=== PATIENT | female | born 1930 | race Caucasian/White ===

== ENCOUNTER 2018-09-21 10:54 | Inpatient (IN) | payer MEDICARE, OTHER ==
[~2018-09-21] VITALS: Ht 154.9 cm; Wt 89.4 kg
[2018-09-21 11:26] VITALS: BP 163/89
[2018-09-21 12:02] LABS: BASO # 0.1 x10^3/uL (0.0-0.2); BASO % 1 % (0-3); EOS % 6 % (0-3); HEMATOCRIT 40.7 % (36.0-47.0); HEMOGLOBIN 13.6 g/dL (12.0-15.5); LYMPH # 1.3 x10^3/uL (1.0-4.8); LYMPH % 8 % (24-48); MEAN CORPUSCULAR HEMOGLOBIN 30 pg (25-35); MEAN CORPUSCULAR HGB CONC 34 g/dL (31-37); MEAN CORPUSCULAR VOLUME 89 fL (79-100); MONO # 1.2 x10^3/uL (0.0-1.1); MONO % 7 % (0-9); NEUT # 13.1 x10^3uL (1.8-7.7); NEUT % 78 % (31-73); PLATELET COUNT 326 x10^3/uL (140-400); RED BLOOD COUNT 4.59 x10^6/uL (3.50-5.40); RED CELL DISTRIBUTION WIDTH 14.3 % (11.5-14.5); WHITE BLOOD COUNT 16.8 x10^3/uL (4.0-11.0)
[2018-09-21 12:17] LABS: ALBUMIN 3.3 g/dL (3.4-5.0); ALBUMIN/GLOBULIN RATIO 0.8 (1.0-1.7); CALCIUM 9.1 mg/dL (8.5-10.1); CREATININE 1.1 mg/dL (0.6-1.0); GFR 47.2; POTASSIUM 4.6 mmol/L (3.5-5.1); TOTAL BILIRUBIN 0.4 mg/dL (0.2-1.0); TOTAL PROTEIN 7.7 g/dL (6.4-8.2)
--- NOTE | 2018-09-21 12:19 | NUR ---
The patient, DONNY SANTIAGO, 87 y/o, F admitted by WHIT HALLMAN MD, was given written information regarding hospital policies, unit procedures and contact persons. Valuables were checked and admission assessment performed. Pt is alert and orientated, pt is very short of breath, lungs are very coarse and wheezy. Pt's VSS. Started 20g in the Right wrist, janette labs including blood cultures. Pt is placed in contact and droplet insolation due to possible flu and pt is being treated at home for bed bugs. Orders received from Dr. Hallman, will CTM.
[2018-09-21 12:23] LABS: INFLUENZA A PATIENT NEGATIVE (NEGATIVE); INFLUENZA B PATIENT NEGATIVE (NEGATIVE)
[2018-09-21] MEDS ORDERED: AZITHROMYCIN 250 MG TABLET. PO SCH (12:30)
--- NOTE | 2018-09-21 12:33 | RAD ---
EXAM: Chest, single view. HISTORY: Shortness of breath. COMPARISON: None. FINDINGS: A frontal view of the chest is obtained. There is mild diffuse increased interstitial opacity. There is no consolidation, pleural effusion or pneumothorax. The heart is normal in size for portable technique. There are calcified granulomas. There is superior migration of the right and left humeral heads likely due to chronic rotator cuff pathology. IMPRESSION: Mild diffuse increased interstitial opacity without anusha congestion or consolidated infiltrate. Electronically signed by: Rach Camargo MD (09/21/2018 12:30 PM) [id number]
[2018-09-21 12:46] LABS: % BANDS 2 % (0-9); % BASOS 1 % (0-3); % EOS 8 % (0-5); % LYMPHS 1 % (24-48); % MONOS 4 % (0-10); % SEGS 78 % (35-66); PLT ESTIMATE ADEQUATE (ADEQUATE)
[2018-09-21 12:47] LABS: TOXIC GRANULATION PRESENT
[2018-09-21] MEDS ORDERED: NIFE30TA38 PO (12:51)
[2018-09-21] MEDS ORDERED: CLON0.1T PO (12:51)
[2018-09-21] MEDS ORDERED: ATOR20TA58 PO (12:51)
[2018-09-21] MEDS ORDERED: VORT5TAB PO (12:51)
[2018-09-21] MEDS ORDERED: CALC-157 PO (12:51)
[2018-09-21] MEDS ORDERED: HYDR-2868 PO (12:51)
[2018-09-21] MEDS ORDERED: CLOP75TA57 PO (12:51)
[2018-09-21] MEDS ORDERED: MELA3TAB2 PO (12:51)
[2018-09-21] MEDS ORDERED: GLUC100018 PO (12:51)
[2018-09-21] MEDS ORDERED: CITA20TA9 PO (12:51)
[2018-09-21] MEDS ORDERED: LISI-334 PO (12:51)
[2018-09-21] MEDS ORDERED: ASPI325T8 PO (12:51)
[2018-09-21] MEDS ORDERED: NYST1000 PO (12:51)
[2018-09-21] MEDS: BENZONATATE 100 MG CAPSULE. PO SCH ×2 (13:24→22:09)
[2018-09-21] MEDS: IPRATRPIUM/ALBUTEROL 0.5/2.5MG 3 ML NEBU. NEB SCH ×3 (13:41→20:15)
[2018-09-21] MEDS ORDERED: HEPARIN for SUB-Q USE 5,000 UNIT/ML VIAL. SQ SCH (14:00)
[2018-09-21] MEDS: GLUCOSAMINE 500 MG CAPSULE PO SCH ×2 (14:30→22:09)
[2018-09-21 15:18] VITALS: BP 141/87
[2018-09-21] MEDS ORDERED: NYSTATIN 100,000 UNITS/ML ORAL SUSPENSION 60ML BOTTLE. SWSW PRN (17:00)
[2018-09-21] MEDS ORDERED: hydrALAZINE 25 MG TABLET PO SCH (17:00)
[2018-09-21 18:33] VITALS: BP 185/96
--- NOTE | 2018-09-21 18:52 | RAD ---
EXAM: Bilateral lower extremity venous Doppler sonogram. HISTORY: Pain and swelling. TECHNIQUE: Mendez scale and color Doppler sonographic evaluation of the bilateral lower extremity veins with spectral waveform analysis was performed. FINDINGS: There is normal color flow, normal compressibility and there are normal spectral waveforms in the common femoral, superficial femoral, popliteal, posterior tibial and greater saphenous veins. IMPRESSION: No Doppler evidence of lower extremity deep venous thrombosis. Electronically signed by: Rach Camargo MD (09/21/2018 6:49 PM) [facility]
[2018-09-21 20:44] LABS: BACTERIA,URINE FEW /HPF (0-FEW); BILIRUBIN,URINE NEG (NEG); CLARITY,URINE HAZY; COLOR,URINE STRAW; GLUCOSE,URINE NEG (NEG); NITRITE,URINE NEG (NEG); RBC,URINE 0 /HPF (0-2); SQUAMOUS EPITHELIAL CELL,UR OCC /LPF; UROBILINOGEN,URINE 0.2 mg/dL (0.2 mg/dL); WBC,URINE 0 /HPF (0-4)
[2018-09-21] MEDS: LACTOBACILLUS RHAMNOSUS GG 1 CAPSULE. PO SCH (22:09)
[2018-09-21] MEDS: methylPREDNISolone SOD SUCC PF 40 MG/ML VIAL. IV SCH (22:09)
[2018-09-21 22:10] VITALS: BP 182/83
[2018-09-21] MEDS: MELATONIN 3 MG TABLET PO SCH (22:10)
[2018-09-21] MEDS: cloNIDine HCL 0.1 MG TABLET PO SCH (22:13)
[2018-09-21] MEDS: hydrALAZINE 25 MG TABLET PO SCH (22:15)
[2018-09-21] MEDS ORDERED: cloNIDine HCL 0.1 MG TABLET PO PRN (22:30)
[2018-09-22] MEDS: IPRATRPIUM/ALBUTEROL 0.5/2.5MG 3 ML NEBU. NEB SCH ×4 (04:57→20:38)
[2018-09-22 06:09] VITALS: BP 155/89
[2018-09-22 06:57] LABS: BASO % 0 % (0-3); EOS % 0 % (0-3); HEMATOCRIT 39.1 % (36.0-47.0); HEMOGLOBIN 12.8 g/dL (12.0-15.5); LYMPH # 0.5 x10^3/uL (1.0-4.8); LYMPH % 4 % (24-48); MEAN CORPUSCULAR HEMOGLOBIN 29 pg (25-35); MEAN CORPUSCULAR HGB CONC 33 g/dL (31-37); MEAN CORPUSCULAR VOLUME 89 fL (79-100); MONO # 0.1 x10^3/uL (0.0-1.1); MONO % 1 % (0-9); NEUT # 10.8 x10^3uL (1.8-7.7); NEUT % 94 % (31-73); PLATELET COUNT 283 x10^3/uL (140-400); RED BLOOD COUNT 4.38 x10^6/uL (3.50-5.40); RED CELL DISTRIBUTION WIDTH 14.1 % (11.5-14.5); WHITE BLOOD COUNT 11.5 x10^3/uL (4.0-11.0)
[2018-09-22 07:06] LABS: CALCIUM 9.3 mg/dL (8.5-10.1); CREATININE 1.4 mg/dL (0.6-1.0); GFR 35.7
[2018-09-22] MEDS: NON FORMULARY ITEM (Vortioxetine Hydrobromide (Trintellix) 5 MG) PO SCH (09:00)
[2018-09-22] MEDS: methylPREDNISolone SOD SUCC PF 40 MG/ML VIAL. IV SCH ×2 (10:27→20:38)
[2018-09-22] MEDS: ASPIRIN 325 MG TABLET PO SCH (10:28)
[2018-09-22] MEDS: LISINOPRIL 20 MG TABLET PO SCH (10:28)
[2018-09-22] MEDS: GLUCOSAMINE 500 MG CAPSULE PO SCH ×3 (10:28→20:40)
[2018-09-22] MEDS: BENZONATATE 100 MG CAPSULE. PO SCH ×3 (10:29→20:40)
[2018-09-22] MEDS: CLOPIDOGREL BISULFATE 75 MG TABLET PO SCH (10:29)
[2018-09-22] MEDS: LACTOBACILLUS RHAMNOSUS GG 1 CAPSULE. PO SCH ×2 (10:29→20:38)
[2018-09-22] MEDS: hydrALAZINE 25 MG TABLET PO SCH ×3 (10:29→20:40)
[2018-09-22] MEDS: CITALOPRAM 20 MG TABLET. PO SCH (10:29)
[2018-09-22] MEDS: CALCIUM CARB/VIT D3 500/200 TABLET PO SCH (10:29)
[2018-09-22] MEDS: ATORVASTATIN CALCIUM 20 MG TABLET PO SCH (10:29)
[2018-09-22 11:03] VITALS: BP 135/82
[2018-09-22 15:57] VITALS: BP 163/79
[2018-09-22 20:36] VITALS: BP 154/78
[2018-09-22] MEDS: MELATONIN 3 MG TABLET PO SCH (20:39)
[2018-09-22] MEDS: cloNIDine HCL 0.1 MG TABLET PO SCH (20:39)
[2018-09-22 23:18] VITALS: BP 156/76
--- NOTE | 2018-09-23 02:18 | PN ---
DATE: SUBJECTIVE: The patient in with pneumonia, sepsis. Continue on IV antibiotic therapy. White count has come down to 11,000. The patient is feeling a little bit stronger overall already. OBJECTIVE: VITAL SIGNS: Indicate blood pressure 160/70, respiratory rate 20, pulse 94 and oxygen saturation up to 96%. Blood pressures come down as well, so we are making good progress there. GENERAL: Otherwise, alert and oriented. LUNGS: Diminished, primarily in the right lower lung base, but markedly improved. CARDIOVASCULAR: Regular sinus rhythm. ABDOMEN: Soft, nontender. EXTREMITIES: No clubbing, cyanosis. Trace edema. The patient on pneumatic compression devices. Will continue to be monitored carefully. Continue on IV antibiotic therapy and continue to monitor her accordingly. Her influenza A was negative. She did have a positive D-dimer and we are waiting for the nuclear medicine machine to be fired up or repaired before we can handle that. IMPRESSION: Pneumonia, acute exacerbation of chronic obstructive pulmonary disease secondary to respiratory infection, chronic kidney disease stage 3, moderate protein malnutrition. PLAN: As above. WHIT HALLMAN MD DR: SACHIN/wayne JOB#: [id number] / [id number]
[2018-09-23] MEDS: IPRATRPIUM/ALBUTEROL 0.5/2.5MG 3 ML NEBU. NEB SCH ×4 (05:07→20:57)
[2018-09-23 05:35] VITALS: BP 132/81
--- NOTE | 2018-09-23 06:42 | EKG ---
[address] [address] Test Date: 2018-09-21 Test Time: 16:02:59 Pat Name: DONNY SANTIAGO Department: Room: 109 A Gender: F Can Filling Machine Operator: : [id number] Requested By: WHIT HALLMAN Order Number: [id number] Reading MD: Young Dailey MD Measurements Intervals Golden Rate: 78 P: -3 TX: 158 QRS: 8 QRSD: 78 T: 28 QT: 374 QTc: 430 Interpretive Statements SINUS RHYTHM Electronically Signed On 09-24-2018 14:09:55 CDT by Young Dailey MD
[2018-09-23] MEDS: ASPIRIN 325 MG TABLET PO SCH (09:00)
[2018-09-23] MEDS: CLOPIDOGREL BISULFATE 75 MG TABLET PO SCH (09:00)
[2018-09-23] MEDS: hydrALAZINE 25 MG TABLET PO SCH ×3 (09:01→20:21)
[2018-09-23] MEDS: ATORVASTATIN CALCIUM 20 MG TABLET PO SCH (09:01)
[2018-09-23] MEDS: CITALOPRAM 20 MG TABLET. PO SCH (09:01)
[2018-09-23] MEDS: guaiFENesin DM 200MG/20MG 10 ML SYRUP PO PRN (09:01)
[2018-09-23] MEDS: CALCIUM CARB/VIT D3 500/200 TABLET PO SCH (09:01)
[2018-09-23] MEDS: LACTOBACILLUS RHAMNOSUS GG 1 CAPSULE. PO SCH ×2 (09:01→20:20)
[2018-09-23] MEDS: LISINOPRIL 20 MG TABLET PO SCH (09:01)
[2018-09-23] MEDS: GLUCOSAMINE 500 MG CAPSULE PO SCH ×3 (09:02→20:23)
[2018-09-23] MEDS: methylPREDNISolone SOD SUCC PF 40 MG/ML VIAL. IV SCH ×2 (09:02→20:22)
[2018-09-23] MEDS: BENZONATATE 100 MG CAPSULE. PO SCH ×3 (09:03→20:20)
[2018-09-23] MEDS: NON FORMULARY ITEM (Vortioxetine Hydrobromide (Trintellix) 5 MG) PO SCH (09:07)
[2018-09-23 11:32] VITALS: BP 137/68
[2018-09-23 15:28] VITALS: BP 164/77
[2018-09-23] MEDS: RIVAROXABAN 15 MG TABLET. PO SCH (17:04)
[2018-09-23 20:07] VITALS: BP 131/70
[2018-09-23] MEDS: cloNIDine HCL 0.1 MG TABLET PO SCH (20:20)
[2018-09-23] MEDS: MELATONIN 3 MG TABLET PO SCH (20:22)
[2018-09-23 22:51] VITALS: BP 124/66
--- NOTE | 2018-09-24 01:22 | PN ---
DATE: 09/23/2018 SUBJECTIVE: An 87-year-old female in with acute exacerbation of COPD and acute bronchospasm. The patient is still having severe bronchospasm. OBJECTIVE: VITAL SIGNS: Blood pressure 130/80, respiratory rate 20, pulse 90, afebrile. GENERAL: The patient is alert and oriented. LUNGS: Still show raspy sounds, coughing jagged. LABORATORY DATA: The patient's white count is still elevated. Otherwise, she is having problems with coughing and bronchospasm, but it is somewhat improved. Blood pressure 130/80, respiratory rate 20, pulse of 90. She is afebrile. She is due for a V/Q scan today because of the positive D-dimer. She will continue to be monitored carefully and make further evaluation on her per those results. Otherwise, she continues to receive steroids, some antibiotics, aggressive pulmonary toilet and make further testing once she gets the testing back from her V/Q scan. IMPRESSION: Acute bronchospasm, acute exacerbation of chronic obstructive pulmonary disease with hypoxia, acute bronchitis, chronic kidney disease stage 3. PLAN: Continue with antibiotics and monitor V/Q scan results. WHIT HALLMAN MD DR: SACHIN/wayne JOB#: [id number] / [id number]
[2018-09-24 05:07] VITALS: BP 151/75
[2018-09-24] MEDS: IPRATRPIUM/ALBUTEROL 0.5/2.5MG 3 ML NEBU. NEB SCH ×4 (05:15→21:05)
[2018-09-24] MEDS: LACTOBACILLUS RHAMNOSUS GG 1 CAPSULE. PO SCH ×2 (08:28→20:52)
[2018-09-24] MEDS: hydrALAZINE 25 MG TABLET PO SCH ×3 (08:28→20:54)
[2018-09-24] MEDS: CALCIUM CARB/VIT D3 500/200 TABLET PO SCH (08:28)
[2018-09-24] MEDS: ATORVASTATIN CALCIUM 20 MG TABLET PO SCH (08:28)
[2018-09-24] MEDS: ASPIRIN 325 MG TABLET PO SCH (08:28)
[2018-09-24] MEDS: methylPREDNISolone SOD SUCC PF 40 MG/ML VIAL. IV SCH ×2 (08:29→20:52)
[2018-09-24] MEDS: GLUCOSAMINE 500 MG CAPSULE PO SCH ×3 (08:29→20:54)
[2018-09-24] MEDS: LISINOPRIL 20 MG TABLET PO SCH (08:29)
[2018-09-24] MEDS: CITALOPRAM 20 MG TABLET. PO SCH (08:29)
[2018-09-24] MEDS: BENZONATATE 100 MG CAPSULE. PO SCH ×3 (08:29→20:53)
[2018-09-24] MEDS: guaiFENesin DM 200MG/20MG 10 ML SYRUP PO PRN ×3 (08:35→20:53)
[2018-09-24] MEDS: NON FORMULARY ITEM (Vortioxetine Hydrobromide (Trintellix) 5 MG) PO SCH (09:00)
[2018-09-24 10:33] LABS: CALCIUM 9.6 mg/dL (8.5-10.1); CREATININE 1.5 mg/dL (0.6-1.0); POTASSIUM 4.8 mmol/L (3.5-5.1)
[2018-09-24 15:17] VITALS: BP 142/73
[2018-09-24] MEDS: RIVAROXABAN 15 MG TABLET. PO SCH (17:33)
[2018-09-24 20:08] VITALS: BP 151/77
[2018-09-24] MEDS: MELATONIN 3 MG TABLET PO SCH (20:53)
[2018-09-24] MEDS: cloNIDine HCL 0.1 MG TABLET PO SCH (20:53)
[2018-09-24 23:14] VITALS: BP 140/74
--- NOTE | 2018-09-25 03:01 | PN ---
DATE: SUBJECTIVE: The patient admitted with acute exacerbation of COPD with hypoxia and respiratory infection. She is resting fairly comfortably, breathing a little better, still having some coughing, jagging and other than that the patient is resting fairly comfortably and making fairly good progress overall. OBJECTIVE: GENERAL: The patient is alert and oriented. VITAL SIGNS: Blood pressure 150/75, respiratory rate 20, pulse in the 50s and afebrile. GENERAL: The patient is alert and oriented. LUNGS: Diminished, some expiratory wheezes, but markedly improved. CARDIOVASCULAR: Regular sinus rhythm. ABDOMEN: Soft, nontender. EXTREMITIES: No clubbing, cyanosis, or edema. NEUROLOGIC: The patient is intact. We are still waiting for her V/Q scan to be performed. IMPRESSION: Therefore, acute exacerbation of chronic obstructive pulmonary disease with respiratory infection, acute bronchospasm with hypoxia, acute bronchitis, chronic kidney disease stage 3 and positive D-dimer, get that V/Q scan and make further evaluation on her as indicated. WHIT HALLMAN MD DR: SACHIN/wayne JOB#: [id number] / [id number]
[2018-09-25] MEDS: IPRATRPIUM/ALBUTEROL 0.5/2.5MG 3 ML NEBU. NEB SCH ×4 (05:44→21:26)
[2018-09-25 05:48] VITALS: BP 148/79
[2018-09-25] MEDS: methylPREDNISolone SOD SUCC PF 40 MG/ML VIAL. IV SCH ×2 (08:05→20:56)
[2018-09-25] MEDS: ASPIRIN 325 MG TABLET PO SCH (08:05)
[2018-09-25] MEDS: CALCIUM CARB/VIT D3 500/200 TABLET PO SCH (08:05)
[2018-09-25] MEDS: LACTOBACILLUS RHAMNOSUS GG 1 CAPSULE. PO SCH ×2 (08:05→20:57)
[2018-09-25] MEDS: CITALOPRAM 20 MG TABLET. PO SCH (08:06)
[2018-09-25] MEDS: BENZONATATE 100 MG CAPSULE. PO SCH ×3 (08:06→20:57)
[2018-09-25] MEDS: hydrALAZINE 25 MG TABLET PO SCH ×3 (08:06→20:57)
[2018-09-25] MEDS: ATORVASTATIN CALCIUM 20 MG TABLET PO SCH (08:06)
[2018-09-25] MEDS: GLUCOSAMINE 500 MG CAPSULE PO SCH ×3 (08:07→20:58)
[2018-09-25] MEDS: LISINOPRIL 20 MG TABLET PO SCH (08:07)
[2018-09-25] MEDS: NON FORMULARY ITEM (Vortioxetine Hydrobromide (Trintellix) 5 MG) PO SCH (09:00)
--- NOTE | 2018-09-25 09:36 | NUR ---
Pt is alert and oriented. Takes pills with thickened water. Pt has complaints of diarrhea. No laxatives or softeners were administered. Will ask pharmacy to do a check of her meds as she states this is what happens when she is taking sulfa or any sulfa derivatives. NIKOLE.
--- NOTE | 2018-09-25 10:06 | RAD ---
Chest, 2 views, 09/25/2018: HISTORY: Elevated d-dimer Comparison is made to a study from 09/21/2018. The heart is at the upper limits of normal in size. There is calcification of the mitral annulus. There is mild aortic calcific plaquing and tortuosity. Calcified mediastinal lymph nodes are evident due to old granulomatous disease. No pulmonary infiltrate is seen. There is no evidence of pleural fluid. Moderate arthritic changes are present in the spine and at both shoulders. IMPRESSION: No acute cardiopulmonary abnormality is detected with no significant change since 09/21/2018. Electronically signed by: Linwood Ochoa MD (09/25/2018 10:03 AM) [facility]
[2018-09-25 11:34] VITALS: BP 136/74
--- NOTE | 2018-09-25 15:34 | RAD ---
Ventilation/perfusion lung scan, 09/25/2018: History: Elevated d-dimer Due to PACS issues this study is just now being presented for review. The ventilation study was performed utilizing 20 mCi of xenon-133. Activity in both lungs is heterogeneous. There is mild patchy retention of activity in both lungs on the washout phase. Perfusion imaging was performed utilizing 5.5 mCi of technetium 99m MAA. A similar pattern of activity is present in both lungs in the anterior and posterior projections. There are peripheral areas of decreased activity projected over the posterior aspects of the upper lobes on the oblique perfusion views. These may be due to overlying soft tissue shadows in this large patient. Bilateral upper lobe pulmonary emboli cannot be excluded on this exam. IMPRESSION: Indeterminate findings as described above. CT angiography of the chest may be useful for further evaluation, if clinically indicated.
[2018-09-25 15:37] VITALS: BP 155/73
[2018-09-25] MEDS: RIVAROXABAN 15 MG TABLET. PO SCH (17:47)
--- NOTE | 2018-09-25 18:35 | PN ---
DATE: SUBJECTIVE: An 87-year-old female in with multiple medical problems, acute bronchospasms, difficulty breathing, positive D-dimer. V/Q scan was done today, but those results are still pending. OBJECTIVE: VITAL SIGNS: Otherwise, blood pressure 140/80, respiratory rate 20, pulse 60, afebrile. GENERAL: The patient is alert and oriented x 3. Speech is fluent, spontaneous, and appropriate. Cranial nerves 2-12 grossly intact. LUNGS: Diminished throughout, but better movement of air than they have been, so she is improving. CARDIOVASCULAR: Regular sinus rhythm. ABDOMEN: Soft, nontender. The patient otherwise is resting fairly comfortably, making fairly good progress. We will continue to monitor her accordingly, get that V/Q scan and then hopefully ready for discharge here soon. IMPRESSION: Acute exacerbation of chronic obstructive pulmonary disease with acute bronchospasm and positive D-dimer. WHIT HALLMAN MD DR: SACHIN/wayne JOB#: [id number] / [id number]
[2018-09-25] MEDS ORDERED: LOPERAMIDE 2 MG CAPSULE PO PRN (18:45)
[2018-09-25 19:15] VITALS: BP 146/73
[2018-09-25] MEDS: cloNIDine HCL 0.1 MG TABLET PO SCH (20:58)
[2018-09-25] MEDS: MELATONIN 3 MG TABLET PO SCH (20:58)
[2018-09-25 22:53] VITALS: BP 128/65
[2018-09-26] MEDS: guaiFENesin DM 200MG/20MG 10 ML SYRUP PO PRN ×2 (03:07→09:00)
[2018-09-26 05:32] VITALS: BP 128/87
[2018-09-26] MEDS: IPRATRPIUM/ALBUTEROL 0.5/2.5MG 3 ML NEBU. NEB SCH (05:34)
[2018-09-26] MEDS ORDERED: predniSONE 20 MG TABLET PO ONE (09:00)
[2018-09-26] MEDS: NON FORMULARY ITEM (Vortioxetine Hydrobromide (Trintellix) 5 MG) PO SCH (09:00)
[2018-09-26] MEDS: BENZONATATE 100 MG CAPSULE. PO SCH (09:00)
[2018-09-26] MEDS: CALCIUM CARB/VIT D3 500/200 TABLET PO SCH (09:00)
[2018-09-26] MEDS: CITALOPRAM 20 MG TABLET. PO SCH (09:00)
[2018-09-26] MEDS: ASPIRIN 325 MG TABLET PO SCH (09:00)
[2018-09-26] MEDS: LISINOPRIL 20 MG TABLET PO SCH (09:01)
[2018-09-26] MEDS: ATORVASTATIN CALCIUM 20 MG TABLET PO SCH (09:01)
[2018-09-26] MEDS: GLUCOSAMINE 500 MG CAPSULE PO SCH (09:01)
[2018-09-26] MEDS: LACTOBACILLUS RHAMNOSUS GG 1 CAPSULE. PO SCH (09:01)
[2018-09-26 09:02] VITALS: BP 128/87
[2018-09-26] MEDS: hydrALAZINE 25 MG TABLET PO SCH (09:02)
[2018-09-26] MEDS ORDERED: NIFE30TA17 PO (10:46)
[2018-09-26] MEDS ORDERED: PRED5TAB PO (10:46)
[2018-09-26] MEDS ORDERED: IPRA3AMP29 NEB (10:46)
[2018-09-26] MEDS ORDERED: LACT1CAP19 PO (10:46)
[2018-09-26] MEDS ORDERED: GUAI5SYR PO (10:46)
[2018-09-26] MEDS ORDERED: DOXY100C PO (10:46)
[2018-09-26] MEDS ORDERED: BENZ-8 PO (10:46)
[2018-09-26] MEDS ORDERED: LOPE2CAP PO (10:46)
--- NOTE | 2018-09-26 12:05 | NUR ---
NSG NOTE; VERBAL AND WRITTEN DISCHARGE INSTRUCTIONS GIVEN TO PT AND DAUGHTER WITH VERBAL UNDERSTANDING.\ NEW NEBULIZER AND HOME HEALTH ARRANGED BY NIKITA INTERIANO CM NEW DISCHARGE RX LIST FAXED TO DR HALLMAN'S OFFICE WHO WILL E TRANSMIT THEM TO THE [facility] DISCHARGE TO HOME AT 1155 VIA W/C ACCOMP BY DAUGHTER
--- NOTE | 2018-09-26 17:53 | DS ---
DATE OF DISCHARGE: 09/26/2018 HOSPITAL COURSE: The patient is an 87-year-old white female, who was initially brought in with pneumonia and acute exacerbation of COPD caused by the infection and hypoxia. The patient made good progress during the rest of her hospitalization. She had a positive D-dimer and that showed intermediate low probability. Therefore, the patient made good progress. She was placed on aggressive pulmonary toilet. She had some moderate protein malnutrition. Other than that, the patient made good progress and blood cultures were negative. IMPRESSION: Therefore, the acute bronchospasm, acute exacerbation of chronic obstructive pulmonary disease with hypoxia, acute bronchitis, pneumonia of unspecified etiology, community-acquired, chronic kidney disease stage 3, morbid obesity and mild protein-malnutrition. WHIT HALLMAN MD DR: SACHIN/nts JOB#: [id number] / [id number]
== END 2018-09-26 11:55 | disposition home health service (06) | DRG 871 ==
LOC: 1 SOUTH 10:54
PROVIDERS: ADMIT Family Medicine; ATTEND Family Medicine
DX: A41.9 Sepsis, unspecified organism (principal); J18.9 Pneumonia, unspecified organism; E44.0 Moderate protein-calorie malnutrition; J44.0 Chronic obstructive pulmonary disease with (acute) lower respiratory infection; J44.1 Chronic obstructive pulmonary disease with (acute) exacerbation; E66.01 Morbid (severe) obesity due to excess calories; J20.9 Acute bronchitis, unspecified; R09.02 Hypoxemia; N18.3 Chronic kidney disease, stage 3 (moderate); Z88.2 Allergy status to sulfonamides; Z79.899 Other long term (current) drug therapy; Z68.37 Body mass index [BMI] 37.0-37.9, adult
CPT/HCPCS: 36415; 71045; 71046; 78582; 80048; 80053; 81001; 83605; 84145; 84484; 85007; 85025; 85379; 86738; 87040; 87804; 93005; 93970; 94640; 96374; A9540; A9558; J0456; J0696; J1956; J2920; J7512; J7620; 97110; 97116; 97530; 97535; 99285-25